=== PATIENT | female | born 1955 | race Caucasian/White ===

== ENCOUNTER 2017-08-12 15:13 | Inpatient (IN) | payer BC ==
[~2017-08-12] VITALS: Ht 167.6 cm; Wt 85.5 kg
[~2017-08-12 15:13] MED LIST: CATAPRES-TTS 21 EACH TD; CIPRO500 MG PO; DIOVAN; FLEXERIL10 MG
[2017-08-12 15:46] LABS: HEMATOCRIT 45.1 % (36.0-46.0); HEMOGLOBIN 14.7 G/DL (11.9-15.5); MCH 30.2 PG (29.0-34.0); MCHC 32.6 G/DL (30.0-36.0); MCV 92.6 FL (83-99); PLATELET COUNT 257 K/uL (156-360); RBC DIS.WIDTH-CV 14.6 % (11.8-14.6); RBC DIS.WIDTH-SD 49.6 % (39-53); RED BLOOD COUNT 4.87 M/uL (3.80-5.20); WHITE BLOOD COUNT 12.5 K/uL (4.1-10.2)
[2017-08-12 15:58] LABS: CHLORIDE 105 mEq/L (99-109); POTASSIUM 3.8 mEq/L (3.7-5.4); SODIUM 142 mEq/L (136-147)
[2017-08-12 16:00] LABS: GLUCOSE 152 mg/dL (70-99)
[2017-08-12 16:04] LABS: CREATININE 0.9 mg/dL (0.6-1.3); GFR ESTIMATE (CALCULATED) > 59 mL/min/
[2017-08-12 16:05] LABS: UREA NITROGEN (BUN) 16 mg/dL (9-23)
[2017-08-12 16:09] LABS: TROP-I INTERPRETATION NEGATIVE; TROPONIN-I < 0.01 ng/mL (0.0-0.30)
[2017-08-12] MEDS ORDERED: KLOR-CON M1010 MEQ PO (16:46)
[2017-08-12] MEDS ORDERED: VITAMIN D22000 UNIT PO (16:48)
[2017-08-12] MEDS ORDERED: CYANOCOBALAM1000 MCG PO (16:48)
[2017-08-12] MEDS ORDERED: ZOCOR10 MG PO (16:48)
[2017-08-12 18:04] LABS: APPEARANCE CLEAR ((CLEAR)); BILIRUBIN NEGATIVE; BLOOD MODERATE; COLOR YELLOW ((YELLOW)); GLUCOSE (STRIP) NEGATIVE; KETONES NEGATIVE; LEUKOCYTES NEGATIVE; NITRITE POSITIVE; PROTEIN (STRIP) NEGATIVE; SPECIFIC GRAVITY 1.012 (1.000-1.030); UROBILINOGEN 0.2 MG/DL (0.2-1.0)
[2017-08-12 18:19] LABS: HDL CHOLESTEROL 51 MG/DL (Desirable>=50); LDL CHOLESTEROL 115 mg/dL (Desirable<100); NON-HDL CHOLESTEROL 150 mg/dL (Desirable<160); TOTAL CHOLESTEROL 201 mg/dL (Desirable<200); TRIGLYCERIDES 173 MG/DL (Normal: <150)
[2017-08-12 18:30] VITALS: BP 143/77
[2017-08-12 18:35] LABS: BACTERIA NONE SEEN /HPF; EPITHELIAL CELLS RARE /HPF; MUCUS NONE SEEN /LPF; RED BLOOD CELLS 0-5 /HPF (0-5); UCUL ADDED? NO; WHITE BLOOD CELLS 0-5 /HPF (0-5)
[2017-08-12 19:20] VITALS: BP 119/70
[2017-08-12 20:14] LABS: TROP-I INTERPRETATION POSITIVE; TROPONIN-I 2.04 ng/mL (0.0-0.30)
[2017-08-12 21:38] LABS: PTT 30.4 SEC (25-37)
[2017-08-12 23:30] VITALS: BP 128/79
[2017-08-13] VITALS (7 sets, daily range): BP systolic 113–142; BP diastolic 72–92
[2017-08-13 02:19] LABS: TROP-I INTERPRETATION POSITIVE
[2017-08-13 02:38] LABS: TROPONIN-I 2.07 ng/mL (0.0-0.30)
[2017-08-13 08:55] LABS: HEMATOCRIT 43.5 % (36.0-46.0); HEMOGLOBIN 14.3 G/DL (11.9-15.5); MCH 30.2 PG (29.0-34.0); MCHC 32.9 G/DL (30.0-36.0); PLATELET COUNT 232 K/uL (156-360); RBC DIS.WIDTH-CV 14.7 % (11.8-14.6); RBC DIS.WIDTH-SD 49.8 % (39-53); RED BLOOD COUNT 4.73 M/uL (3.80-5.20); WHITE BLOOD COUNT 14.1 K/uL (4.1-10.2)
[2017-08-13 09:50] LABS: TROP-I INTERPRETATION POSITIVE; TROPONIN-I 1.18 ng/mL (0.0-0.30)
[2017-08-13 13:46] LABS: HEMOGLOBIN A1c (GLYCOHEMOGLOB) 5.5 % (Below 5.7)
[2017-08-14 04:45] VITALS: BP 85/50
[2017-08-14 05:34] LABS: HEMATOCRIT 43.1 % (36.0-46.0); HEMOGLOBIN 13.6 G/DL (11.9-15.5); MCH 29.4 PG (29.0-34.0); MCHC 31.6 G/DL (30.0-36.0); MCV 93.1 FL (83-99); PLATELET COUNT 228 K/uL (156-360); RBC DIS.WIDTH-CV 14.9 % (11.8-14.6); RBC DIS.WIDTH-SD 50.7 % (39-53); RED BLOOD COUNT 4.63 M/uL (3.80-5.20)
[2017-08-14 05:55] LABS: CHLORIDE 106 MEQ/L (99-109); GFR ESTIMATE (CALCULATED) > 59 mL/min/; POTASSIUM 4.2 MEQ/L (3.7-5.4); SODIUM 140 MEQ/L (136-147); UREA NITROGEN (BUN) 15 mg/dL (9-23)
[2017-08-14 06:08] LABS: GLUCOSE 95 mg/dL (70-99)
[2017-08-14 07:14] LABS: ANISOCYTOSIS 1+; BASOPHIL (%) 0.5 % (0-1); BASOPHIL COUNT 0.1 K/uL (0-0.1); EOSINOPHIL (%) 0.6 % (0-5); EOSINOPHIL COUNT 0.1 K/uL (0-0.3); IMMATURE GRANULOCYTE (%) 0.7 % (0.0-0.7); LYMPHOCYTE (%) 12.6 % (15-42); LYMPHOCYTE COUNT 1.9 K/uL (1.0-2.8); MICROCYTOSIS 1+; MONOCYTE (%) 6.7 % (3-12); NEUTROPHIL (%) 78.9 % (45-76); NEUTROPHIL COUNT 11.8 K/uL (1.8-6.4)
[2017-08-14 07:35] VITALS: BP 103/65
[2017-08-14 12:39] VITALS: BP 107/72
[2017-08-14 17:56] VITALS: BP 116/67
[2017-08-14 19:15] VITALS: BP 99/54
[2017-08-15 00:05] VITALS: BP 100/64
[2017-08-15 04:45] LABS: HEMATOCRIT 42.1 % (36.0-46.0); HEMOGLOBIN 13.7 G/DL (11.9-15.5); MCH 30.3 PG (29.0-34.0); MCHC 32.5 G/DL (30.0-36.0); MCV 93.1 FL (83-99); PLATELET COUNT 219 K/uL (156-360); RBC DIS.WIDTH-SD 51.4 % (39-53); RED BLOOD COUNT 4.52 M/uL (3.80-5.20); WHITE BLOOD COUNT 13.8 K/uL (4.1-10.2)
[2017-08-15 04:50] VITALS: BP 107/67
[2017-08-15 06:49] VITALS: BP 126/67
[2017-08-15] MEDS ORDERED: ASPIR-LOW81 MG PO (11:46)
[2017-08-15] MEDS ORDERED: LOPRESSOR25 MG PO (11:46)
[2017-08-15] MEDS ORDERED: LISINOPRIL2.5 MG PO (11:46)
== END 2017-08-15 13:20 | disposition home or self-care (01) | DRG 281 ==
LOC: EME 15:13 → EDOF 17:06 → ENRESERV 17:19 → 5WEST 18:17 → 4EAST 21:06 → ENRESERV 22:22 → 4EAST 23:56 → ENPENDDIS 08-15 → 4EAST 08-15 13:20
PROVIDERS: Emergency Medicine; Hospitalist; Physician Assistant Medical; Student in an Organized Health Care Education/Training Program
DX: I11.9 Hypertensive heart disease without heart failure (principal); I51.81 Takotsubo syndrome; I21.4 Non-ST elevation (NSTEMI) myocardial infarction; N39.0 Urinary tract infection, site not specified; E78.5 Hyperlipidemia, unspecified; F41.9 Anxiety disorder, unspecified; M79.7 Fibromyalgia; G89.4 Chronic pain syndrome; Z82.49 Family history of ischemic heart disease and other diseases of the circulatory system; Z90.710 Acquired absence of both cervix and uterus
CPT/HCPCS: 71046; 71275; 80047; 80048; 80061; 81003; 83036; 84484; 85025; 85027; 85379; 85610; 85730; 93005; 93306; 94799; 99281; 99285; C1769; C1887; J0696; J1200; J1644; J2250; J2405; J3010; J7030; J7040; S0028